=== PATIENT | male | born 1955 | race Caucasian/White ===

== ENCOUNTER 2018-01-21 15:59 | Outpatient (CLI) | payer OTHER ==
[2018-01-21 16:49] LABS: #Basophils 0.1 thou/uL (0.0-0.2); #Eosinphils 0.2 thou/uL (0.0-0.7); #Lymphocytes 2.8 thou/uL (1.20-3.40); #Monocytes 0.8 thou/uL (0.11-0.59); #Neutrophils 6.3 thou/uL (1.40-6.50); %Basophils 0.7 % (0.0-1.0); %Eosinophils 1.6 % (0.0-10.0); %Lymphocytes 27.6 % (21.0-51.0); %Monocytes 7.5 % (0.0-10.0); %Neutrophils 62.6 % (42.0-75.0); Hemoglobin 16.1 g/dL (14.0-18.0); Mean Corpuscular HGB CONC 34.4 g/dL (32.0-36.0); Mean Corpuscular Hemoglobin 32.3 pg (27.0-31.0); Mean Corpuscular Volume 93.8 fl (80.0-94.0); Mean Platelet Volume 7.1 fL (7.4-10.4); Platelet Count 233 thou/uL (130-400); Red Blood Cell (RBC) Count 5.01 mill/uL (4.70-6.10); White Blood Cell (WBC) Count 10.1 thou/uL (4.8-10.8)
[2018-01-21 17:10] LABS: ALT (SGPT) 28 U/L (8-55); AST (SGOT) 21 U/L (5-34); Albumin 4.4 g/dL (3.4-4.8); Alkaline Phosphatase 89 U/L (40-150); Anion Gap 12 mmol/L (10-20); BUN (Urea Nitrogen) 12 mg/dL (8.4-25.7); Bilirubin, Total 1.1 mg/dL (0.2-1.2); Calc. Creatinine Clearance 0 mL/min (70-130); Calcium 9.7 mg/dL (7.8-10.44); Carbon Dioxide 24 mmol/L (23-31); Chloride 104 mmol/L (98-107); Estimated GFR-MDRD 81; Globulin 3.1 g/dL (2.4-3.5); Glucose 92 mg/dL (80-115); Potassium 4.2 mmol/L (3.5-5.1); Protein, Total 7.5 g/dL (5.8-8.1); Sodium 136 mmol/L (136-145)
--- NOTE | 2018-01-22 20:32 | EKG ---
Test Reason : Blood Pressure : / mmHG Vent. Rate : 074 BPM Atrial Rate : 074 BPM P-R Int : 164 ms QRS Dur : 094 ms QT Int : 368 ms P-R-T Axes : 021 -13 002 degrees QTc Int : 408 ms Normal sinus rhythm with sinus arrhythmia Normal ECG No previous ECGs available Confirmed by DR. Lucy RING MD ([id number]) on 01/22/2018 8:32:03 PM Referred By: AUBREE Confirmed By:DR. Lucy RING MD
== END 2018-01-21 16:00 | disposition home or self-care (01) ==
LOC: LABBT 15:59
PROVIDERS: ATTEND Surgery
DX: Z01.818 Encounter for other preprocedural examination (principal); K40.90 Unilateral inguinal hernia, without obstruction or gangrene, not specified as recurrent
CPT/HCPCS: 80053; 85025; 93005; 93010

== ENCOUNTER 2018-01-22 05:48 | Day surgery (SDC) | payer OTHER ==
[2018-01-22 06:19] LABS: #Eosinphils 0.2 thou/uL (0.0-0.7); #Lymphocytes 2.7 thou/uL (1.20-3.40); #Monocytes 0.6 thou/uL (0.11-0.59); #Neutrophils 4.8 thou/uL (1.40-6.50); %Basophils 0.4 % (0.0-1.0); %Eosinophils 1.9 % (0.0-10.0); %Lymphocytes 31.9 % (21.0-51.0); %Monocytes 7.7 % (0.0-10.0); %Neutrophils 58.1 % (42.0-75.0); Hemoglobin 16.1 g/dL (14.0-18.0); Mean Corpuscular HGB CONC 34.2 g/dL (32.0-36.0); Mean Corpuscular Hemoglobin 32.2 pg (27.0-31.0); Mean Corpuscular Volume 94.2 fl (80.0-94.0); Mean Platelet Volume 7.2 fL (7.4-10.4); Platelet Count 232 thou/uL (130-400); Red Blood Cell (RBC) Count 5.01 mill/uL (4.70-6.10); White Blood Cell (WBC) Count 8.3 thou/uL (4.8-10.8)
[2018-01-22 06:38] LABS: ALT (SGPT) 26 U/L (8-55); AST (SGOT) 19 U/L (5-34); Albumin 4.3 g/dL (3.4-4.8); Alkaline Phosphatase 88 U/L (40-150); Anion Gap 12 mmol/L (10-20); BUN (Urea Nitrogen) 11 mg/dL (8.4-25.7); Bilirubin, Total 1.4 mg/dL (0.2-1.2); Calc. Creatinine Clearance 0 mL/min (70-130); Calcium 9.9 mg/dL (7.8-10.44); Carbon Dioxide 27 mmol/L (23-31); Chloride 100 mmol/L (98-107); Estimated GFR-MDRD 76; Globulin 3.4 g/dL (2.4-3.5); Glucose 100 mg/dL (80-115); Lipase 20 U/L (8-78); Potassium 4.1 mmol/L (3.5-5.1); Protein, Total 7.7 g/dL (5.8-8.1); Sodium 135 mmol/L (136-145)
[2018-01-22] MEDS ORDERED: CEFAZOLIN/Water 2 GM/20 ML SYRINGE ONE (07:30)
[2018-01-22] MEDS ORDERED: Bupivacaine/Epinephrine 0.25% 30 ML VIAL ONE (09:15)
[2018-01-22] MEDS ORDERED: Fentanyl 100 MCG/2 ML VIAL ONE ×2 (09:21→11:48)
[2018-01-22] MEDS ORDERED: Meperidine HCl/PF 25 MG/ML VIAL SLOW IVP PRN (10:17)
[2018-01-22] MEDS ORDERED: Promethazine HCl 25 MG/ML VIAL SLOW IVP PRN (10:17)
[2018-01-22] MEDS ORDERED: Promethazine HCl 25 MG/ML VIAL IM PRN (10:17)
[2018-01-22] MEDS ORDERED: Ondansetron HCl/PF 4 MG/2 ML Vial IVP PRN (10:17)
[2018-01-22] MEDS ORDERED: HYDROmorphone 2 MG/ML VIAL SLOW IVP PRN (10:17)
[2018-01-22] MEDS ORDERED: Morphine Sulfate 2 MG/ML SYRINGE SLOW IVP PRN (10:17)
--- NOTE | 2018-01-22 11:43 | OP ---
PREOPERATIVE DIAGNOSIS: Incarcerated right inguinal hernia. SURGEON: Gus Monaco M.D. PROCEDURE PERFORMED: Right inguinal hernia repair with mesh. INDICATIONS: This is a 62-year-old male, who has a 5-day history of a painful groin bulge on the rig ht, found to have an incarcerated hernia. FINDINGS: Very, very large hernia sac containing omentum and small bowel was viable. He is morbidly obese, making this much more difficult. DESCRIPTION OF PROCEDURE: After informed consent was obtained, the patient was taken to the operatin g room, given general endotracheal anesthesia. He was placed in the supine position. His groin was prepped and draped in the usual fashion. Local anesthesia infiltrated subcutaneously and deep. A tr ansverse right inguinal incision was performed. Subcu divided sharply. Had to use deep retractors t o get down to the fascia. The fascia was incised in the direction of its fibers through the external ring. The spermatic cord was massive, probably 2 inches plus in diameter. I had to use the larger Maritza drain to get around it. Once I got around it, I wound up opening the sac and pulling out ome ntum and some bowel that was viable. It was placed. It was then able to be reduced. Then, I divide d the hernia sac and it from surrounding cord structures down to the internal ring. The he rnia sac was then closed with 0 silk suture as a pursestring. The hernia sac was reduced. Reduction maintained utilizing a PHS hernia system extended. The posterior layer was placed in the preperiton eal space. Anterior, it was laid out. It was sutured to the pubic tubercle with a 2-0 Prolene sutur e. Because of his size, also had to tack down the lateral edge to the muscle with a 2-0 Prolene sutu re and also had to tack it onto the reflected edge of the inguinal ligament making a notch in it for the spermatic cord. Then once it was laid out, placed the cord anatomic, hemostasis achieved with el ectrocautery. The external oblique fascia closed with a running 3-0 Vicryl. Hemostasis was assured. The subcu was probably about 4-5 inches deep. It was irrigated, hemostasis assured, then closed wi th interrupted 3-0 Vicryl. Skin closed with a running subcuticular 4-0 Rapide. Steri-Strips applied . Sterile bandage applied. The patient tolerated the procedure well and was transferred to recovery in good condition.
[2018-01-22] MEDS ORDERED: Lidocaine 1% PF 5 ML VIAL ONE (12:15)
[2018-01-22] MEDS ORDERED: Metoclopramide HCl 10 MG/2 ML VIAL ONE (12:15)
[2018-01-22] MEDS ORDERED: Dexamethasone 20 MG/5 ML VIAL ONE (12:15)
[2018-01-22] MEDS ORDERED: Glycopyrrolate 0.2 MG/ML 5 ML SYRINGE ONE (12:15)
[2018-01-22] MEDS ORDERED: PROPOFOL 200 MG/20 ML VIAL ONE (12:15)
[2018-01-22] MEDS ORDERED: Ketorolac Tromethamine 30 MG/ML VIAL ONE (12:15)
[2018-01-22] MEDS ORDERED: Ondansetron HCl/PF 4 MG/2 ML Vial ONE (12:15)
== END 2018-01-22 13:40 | disposition home or self-care (01) ==
LOC: ERS 05:48 → SDC/OP 07:20 → SDC 13:40
PROVIDERS: ATTEND Surgery
PROC: 0YU50JZ Supplement Right Inguinal Region with Synthetic Substitute, Open Approach (ICD-10-PCS; principal; 2018-01-22)
DX: K40.30 Unilateral inguinal hernia, with obstruction, without gangrene, not specified as recurrent (principal); E66.01 Morbid (severe) obesity due to excess calories
CPT/HCPCS: 36415; 80053; 83605; 83690; 85025; 96374; 99285; C1781; J3010